=== PATIENT | female | born 1980 | race Caucasian/White ===

== ENCOUNTER 2016-11-25 06:50 | Inpatient (IN) | payer OTHER ==
[2016-11-25 07:18] VITALS: BMI 47.2
--- NOTE | 2016-11-25 08:10 | ED PDOC ---
Upper Extremity Pain/Injury Time Seen by Provider: 11/25/16 07:06 Chief Complaint (Nursing): Upper Extremity Problem/Injury Chief Complaint (Provider): Upper Extremity Problem/Injury History Per: Patient History/Exam Limitations: no limitations Onset/Duration Of Symptoms: Days (x4) Current Symptoms Are (Timing): Still Present Additional Complaint(s): Jose Fernandez is a 36 year old female, right-hand dominant, with previous medical history of hypertension, who presents to the emergency department with a complaint of sharp left arm pain radiating to left hand associated with numbness ongoing for 4 days. Denied any acute injuries or trauma. Patient stated that she is usually works with her hands at a [employer]. PMD: none provided Past Medical History Reviewed: Historical Data, Nursing Documentation, Vital Signs Vital Signs: Last Vital Signs Temp 98.3 F 11/25/16 07:15 Pulse 65 11/25/16 07:15 Resp 18 11/25/16 07:15 BP 136/73 11/25/16 07:15 Pulse Ox 98 11/25/16 07:15 - Medical History PMH: HTN (not on medication) - Surgical History Surgical History: (x 1) - Family History Family History: States: Unknown Family Hx - Social History Current smoker - smoking cessation education provided: No Ex-Smoker (has not smoked in the last 12 months): No Alcohol: Occasional Drugs: Denies - Home Medications Home Medications: Ambulatory Orders Medication Instructions Recorded No Known Home Med 11/25/16 - Allergies Allergies/Adverse Reactions: Allergies Allergy/AdvReac Type Severity Reaction Status Date / Time No Known Allergies Allergy Verified 02/12/16 10:05 Review of Systems Musculoskeletal: Positive for: Arm Pain (left), Hand Pain (left). Negative for : Other (acute injury or trauma) Neurological: Positive for: Numbness (left hand) Physical Exam - Reviewed Nursing Documentation Reviewed: Yes Vital Signs Reviewed: Yes - Physical Exam Appears: Positive for: Well (but obese), Non-toxic, No Acute Distress Head Exam: Positive for: ATRAUMATIC, NORMAL INSPECTION, NORMOCEPHALIC Cardiovascular/Chest: Positive for: Regular Rate, Rhythm. Negative for: Chest Non Tender Respiratory: Positive for: Normal Breath Sounds, Accessory Muscle Use. 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 Negative for: Deformity, Swelling (or erythema/ecchymosis) Neurologic/Psych: Positive for: Alert, Oriented - Laboratory Results Result Diagrams: 11/25/16 09:35 11/25/16 09:35 - ECG O2 Sat by Pulse Oximetry: 98 (RA) Pulse Ox Interpretation: Normal Medical Decision Making Medical Decision Making: Initial Impression: Left arm pain Initial Plan: * Toradol 30mg IM * Accucheck * Xray elbow (left) * Xray forearm (left) * Xray wrist (left) XRays unremarkable on my read labs obtained, WBC normal Mild elev CK Patient had persistent pain requiring multiple doses of narcotics and NSAID. Also given valium for muscle relaxation. MR Upper ext ordered given degree of pain r/o acute nerve entrapment Accession No. : [id number] Patient Name / ID : EDUARDO PARRAID / [id number] Exam Date : 11/25/2016 13:55:52 ( Approved ) Study Comment : Sex / Age : F / 36Y Creator : Sky Bowie MD Dictator : Sky Bowie MD News Commentator : [employer] Officer : Sky Bowie MD Approver2 : Report Date : 11/25/2016 14:55:45 My Comment : PROCEDURE: MRI left forearm and elbow without contrast HISTORY: Pain. COMPARISON: None available. TECHNIQUE: Multiecho multiplanar sequences were performed through the left elbow without the use of intravenous contrast. FINDINGS: BONES: Intact. CARTILAGE: Preserved. JOINT FLUID: Normal. MUSCLES: Normal. VESSELS: Normal. NERVES: There is mildly increased signal identified in the ulnar nerve at the level of the medial epicondyles which may indicate neuritis. Clinically correlate further. MEDIAL: Flexor pronator origin intact. Ulnar collateral ligament intact. LATERAL: Common extensor tendon intact. Radial collateral ligament intact. Lateral ulnar collateral ligament intact. TRICEPS TENDON: Intact. BICEPS TENDON: Intact. BRACHIALIS TENDON: Intact. OTHER FINDINGS: None. IMPRESSION: Limited signal increase in the ulnar nerve at the level the medial epicondyle may indicate reactive neuritis from posttraumatic or even inflammatory or infectious causes. Further clinical correlation is advised. There is no fracture or bone contusion identified throughout the former the left elbow. There is no suspicious fluid collection. No definite muscle tear identified. The tendons appear intact. As imaged. Note, with the distal most portion of the triceps and biceps tendons have not captured in this exam which focused on the forearm soft tissues which are generally unremarkable appearing. --------- Case discussed w Dr Ellington hand surgery, recommends obs admit with arm elevation and high dose anti-inflammatories. To admit hospitalist. Scribe Attestation: Documented by Noemy Villela, acting as a scribe for Ortega Andrade III, DO. Provider Scribe Attestation: All medical record entries made by the Scribe were at my direction and personally dictated by me. I have reviewed the chart and agree that the record accurately reflects my personal performance of the history, physical exam, medical decision making, and the department course for this patient. I have also personally directed, reviewed, and agree with the discharge instructions and disposition. Disposition - Clinical Impression Clinical Impression: Neuritis of left ulnar nerve - Patient ED Disposition Is Patient to be Admitted: Yes Counseled Patient/Family Regarding: Studies Performed, Diagnosis - Disposition Disposition Time: 13:00 Condition: STABLE - Pt Status Changed To: Hospital Disposition Of: Observation - POA Present On Arrival: None
[2016-11-25] MEDS ORDERED: Oxycodone/Acetaminophen 5/325 mg Tab PO ONE (09:06)
[2016-11-25 09:46] LABS: BASO % 0.4 % (0.0-2.0); EOS # 0.1 K/uL (0.0-0.7); EOS % 0.7 % (0.0-4.0); HEMATOCRIT 41.3 % (34.0-47.0); LYMPH # 3.8 K/uL (1.0-4.3); LYMPH % 43.3 % (20.0-40.0); MEAN CELL VOLUME 84.7 fl (81.0-99.0); MEAN CORPUSCULAR HEMOGLOBIN 28.7 pg (27.0-31.0); MEAN CORPUSCULAR HGB CONC 33.9 g/dL (33.0-37.0); MEAN PLATELET VOLUME 8.1 fl (7.2-11.7); MONO # 0.9 K/uL (0.0-0.8); MONO % 10.9 % (0.0-10.0); NEUT # 3.9 K/uL (1.8-7.0); NEUT % 44.7 % (50.0-75.0); NRBC % 0.1 % (0.0-0.0); WHITE BLOOD COUNT 8.7 K/uL (4.8-10.8)
[2016-11-25 09:57] LABS: BLOOD UREA NITROGEN 10 mg/dl (7-17); CALCIUM 9.5 mg/dL (8.4-10.2); CARBON DIOXIDE 24 mmol/L (22-30); CHLORIDE 105 mmol/L (98-107); GFR AFRICAN-AMERICAN > 60; GLUCOSE,RANDOM 95 mg/dL (65-105); POTASSIUM 4.2 MMOL/L (3.6-5.0); SODIUM 143 mmol/l (132-148)
[2016-11-25] MEDS ORDERED: Sodium Chloride 0.9% 1,000 ML IV STA (10:11)
--- NOTE | 2016-11-25 11:47 | RAD ---
PROCEDURE: Radiographs of the Left Forearm HISTORY: L arm pain COMPARISON: None available. TECHNIQUE: Frontal and lateral views obtained. FINDINGS: BONES: No fracture or destructive lesion. JOINT SPACES: Unremarkable. OTHER FINDINGS: None. IMPRESSION: Unremarkable radiographs of the left forearm.
--- NOTE | 2016-11-25 11:47 | RAD ---
PROCEDURE: Left Wrist Radiographs. HISTORY: L arm pain COMPARISON: None. FINDINGS: BONES: Normal. No fracture. JOINTS: Normal. No dislocation. SOFT TISSUES: Normal. OTHER FINDINGS: None. IMPRESSION: Normal left wrist radiographs.
--- NOTE | 2016-11-25 11:48 | RAD ---
PROCEDURE: Radiographs of the left elbow. HISTORY: L arm pain COMPARISON: No prior. FINDINGS: BONES: Normal. No fracture. JOINTS: Normal. No osteoarthritis. SOFT TISSUES: Normal. JOINT EFFUSION: None. OTHER FINDINGS: None IMPRESSION: Unremarkable radiographs of the left elbow.
--- NOTE | 2016-11-25 14:57 | MRI ---
PROCEDURE: MRI left forearm and elbow without contrast HISTORY: Pain. COMPARISON: None available. TECHNIQUE: Multiecho multiplanar sequences were performed through the left elbow without the use of intravenous contrast. FINDINGS: BONES: Intact. CARTILAGE: Preserved. JOINT FLUID: Normal. MUSCLES: Normal. VESSELS: Normal. NERVES: There is mildly increased signal identified in the ulnar nerve at the level of the medial epicondyles which may indicate neuritis. Clinically correlate further. MEDIAL: Flexor pronator origin intact. Ulnar collateral ligament intact. LATERAL: Common extensor tendon intact. Radial collateral ligament intact. Lateral ulnar collateral ligament intact. TRICEPS TENDON: Intact. BICEPS TENDON: Intact. BRACHIALIS TENDON: Intact. OTHER FINDINGS: None. IMPRESSION: Limited signal increase in the ulnar nerve at the level the medial epicondyle may indicate reactive neuritis from posttraumatic or even inflammatory or infectious causes. Further clinical correlation is advised. There is no fracture or bone contusion identified throughout the former the left elbow. There is no suspicious fluid collection. No definite muscle tear identified. The tendons appear intact. As imaged. Note, with the distal most portion of the triceps and biceps tendons have not captured in this exam which focused on the forearm soft tissues which are generally unremarkable appearing.
--- NOTE | 2016-11-25 16:03 | CP.PCM.HP ---
History of Present Illness - History of Present Illness History of Present Illness: 36 yo female with no significant PMH woke up 4 days ago with pain on left arm extending to the hand associated with numbness. Pain more severe on the hand limiting its movement and grasping. Denied presence of trauma. Present on Admission - Present on Admission Any Indicators Present on Admission: No History of DVT/PE: No History of Uncontrolled Diabetes: No Urinary Catheter: No Decubitus Ulcer Present: No Review of Systems - Review of Systems All systems: reviewed and no additional remarkable complaints except (aside from those mentioned above, 12 point system review were negative by me) Past Patient History - Tetanus Immunizations Tetanus Immunization: Unknown - Past Medical History & Family History Past Family History: Reviewed and not pertinent - Past Social History Smoking Status: Never Smoked Alcohol: Occasional Drugs: Denies - CARDIAC Hx Hypertension: Yes (not on medication) - PULMONARY Hx Respiratory Disorders: No - NEUROLOGICAL Hx Neurological Disorder: No - HEENT Hx HEENT Problems: No - RENAL Hx Chronic Kidney Disease: No - ENDOCRINE/METABOLIC Hx Endocrine Disorders: No - HEMATOLOGICAL/ONCOLOGICAL Hx Blood Disorders: No - INTEGUMENTARY Hx Dermatological Problems: No - MUSCULOSKELETAL/RHEUMATOLOGICAL Hx Musculoskeletal Disorders: No - GASTROINTESTINAL Hx Gastrointestinal Disorders: No - GENITOURINARY/GYNECOLOGICAL Hx Genitourinary Disorders: No - PSYCHIATRIC Hx Psychophysiologic Disorder: No Hx Substance Use: No - SURGICAL HISTORY Hx Section: Yes Hx Orthopedic Surgery: Yes (right elbow ) - ANESTHESIA Hx Anesthesia: Yes Hx Anesthesia Reactions: No Meds Allergies/Adverse Reactions: Allergies Allergy/AdvReac Type Severity Reaction Status Date / Time No Known Allergies Allergy Verified 02/12/16 10:05 Physical Exam - Constitutional Appears: No Acute Distress - Head Exam Head Exam: ATRAUMATIC - Eye Exam Eye Exam: PERRL - ENT Exam ENT Exam: Mucous Membranes Moist - Neck Exam Neck exam: Negative for: Meningismus - Respiratory Exam Respiratory Exam: absent: Rhonchi, Wheezes, Respiratory Distress - Cardiovascular Exam Cardiovascular Exam: REGULAR RHYTHM, +S1, +S2 - GI/Abdominal Exam GI & Abdominal Exam: Soft. absent: Tenderness - Rectal Exam Rectal Exam: Deferred - Extremities Exam Extremities exam: Positive for: tenderness (on right medial epicondyle and wrist area) - Neurological Exam Neurological exam: Alert, Oriented x3 - Psychiatric Exam Psychiatric exam: Normal Affect - Skin Skin Exam: Dry, Intact Results - Vital Signs Recent Vital Signs: Last Vital Signs Temp 98.3 F 11/25/16 07:15 Pulse 65 11/25/16 07:15 Resp 18 11/25/16 07:15 BP 136/73 11/25/16 07:15 Pulse Ox 98 11/25/16 15:21 - Labs Result Diagrams: 11/25/16 09:35 11/25/16 09:35 Labs: Laboratory Results - last 24 hr 11/25/16 11/25/16 09:35 09:35 WBC 8.7 D RBC 4.88 Hgb 14.0 Hct 41.3 MCV 84.7 MCH 28.7 MCHC 33.9 RDW 13.0 Plt Count 357 MPV 8.1 Neut % (Auto) 44.7 L Lymph % (Auto) 43.3 H [place] % (Auto) 10.9 H Eos % (Auto) 0.7 Baso % (Auto) 0.4 Neut # 3.9 Lymph # 3.8 [place] # 0.9 H Eos # 0.1 Baso # 0.0 Sodium 143 Potassium 4.2 Chloride 105 Carbon Dioxide 24 Anion Gap 18 BUN 10 Creatinine 0.6 L Est GFR ( Amer) > 60 Est GFR (Non-Af Amer) > 60 Random Glucose 95 Calcium 9.5 Total Creatine Kinase 189 H Assessment & Plan (1) Neuritis of left ulnar nerve Status: Acute Comment: place on observation in med/surg. hand surgeon consult with dr Henning (called by ER). Motrin 600mg PO q 6hrs prn. keep left arm elevated and prevent extended period of elbow flexion
[2016-11-25] MEDS ORDERED: Influenza Vaccine 18yr & older 0.5 ML/45 MCG SYR IM ONE (17:17)
[2016-11-26 07:51] LABS: BLOOD UREA NITROGEN 11 mg/dl (7-17); CALCIUM 9.1 mg/dL (8.4-10.2); CARBON DIOXIDE 20 mmol/L (22-30); CHLORIDE 108 mmol/L (98-107); GFR AFRICAN-AMERICAN > 60; GLUCOSE,RANDOM 106 mg/dL (65-105); POTASSIUM 4.2 MMOL/L (3.6-5.0); SODIUM 140 mmol/l (132-148)
[2016-11-26] MEDS: Enoxaparin 40 mg Syringe SC SCH (09:00)
[2016-11-26] MEDS: Pantoprazole 40 mg EC Tab PO SCH (09:00)
[2016-11-26 09:11] LABS: BASO # 0.1 K/uL (0.0-0.2); BASO % 0.5 % (0.0-2.0); HEMATOCRIT 41.4 % (34.0-47.0); LYMPH # 2.2 K/uL (1.0-4.3); LYMPH % 17.2 % (20.0-40.0); MEAN CELL VOLUME 86.9 fl (81.0-99.0); MEAN CORPUSCULAR HEMOGLOBIN 28.5 pg (27.0-31.0); MEAN CORPUSCULAR HGB CONC 32.8 g/dL (33.0-37.0); MONO # 0.9 K/uL (0.0-0.8); MONO % 7.1 % (0.0-10.0); NEUT # 9.8 K/uL (1.8-7.0); NEUT % 75.2 % (50.0-75.0); NRBC % 0.1 % (0.0-0.0); RED CELL DISTRIBUTION WIDTH 13.4 % (11.5-14.5)
--- NOTE | 2016-11-26 10:57 | CP.PCM.PN ---
Subjective - Date & Time of Evaluation Date of Evaluation: 11/26/16 Time of Evaluation: 11:00 - Subjective Subjective: Pt seen and examined. Pain temporarily relieved with IV Toradol which lasted less than 4 hrs. Refused to take Ibuprofen since she claimed it didn't work for her at home. Objective - Vital Signs/Intake and Output Vital Signs (last 24 hours): Temp Pulse Resp BP Pulse Ox 98 F 72 18 113/77 97 11/26/16 07:25 11/26/16 07:25 11/26/16 07:25 11/26/16 07:25 11/26/16 07:25 - Medications Medications: Current Medications Acetaminophen (Tylenol 325mg Tab) 650 mg PO Q4 PRN PRN Reason: Pain, Mild (1-3) Enoxaparin Sodium (Lovenox) 40 mg SC DAILY [facility] PRN Reason: Protocol Last Admin: 11/26/16 09:00 Dose: 40 mg Ketorolac Tromethamine (Toradol) 30 mg IVP Q6 PRN PRN Reason: Pain, severe (8-10) Last Admin: 11/26/16 07:25 Dose: 30 mg Pantoprazole Sodium (Protonix Ec Tab) 40 mg PO DAILY [facility] Last Admin: 11/26/16 09:00 Dose: 40 mg Tramadol HCl (Ultram) 100 mg PO Q4 PRN PRN Reason: Pain, moderate (4-7) - Labs Labs: 11/26/16 06:45 11/26/16 06:45 - Constitutional Appears: No Acute Distress - Head Exam Head Exam: ATRAUMATIC - Eye Exam Eye Exam: absent: Scleral icterus - ENT Exam ENT Exam: Mucous Membranes Moist - Neck Exam Neck Exam: absent: Meningismus - Respiratory Exam Respiratory Exam: absent: Rhonchi, Wheezes, Respiratory Distress - Cardiovascular Exam Cardiovascular Exam: REGULAR RHYTHM, +S1, +S2 - GI/Abdominal Exam GI & Abdominal Exam: Soft. absent: Tenderness - Rectal Exam Rectal Exam: Deferred - Extremities Exam Extremities Exam: Tenderness (slight tenderness on left medial epicondyle? ( patient did not flinch or jump when touched)) - Neurological Exam Neurological Exam: Alert, Oriented x3 - Psychiatric Exam Psychiatric exam: Normal Affect - Skin Skin Exam: Dry, Intact Assessment and Plan (1) Neuritis of left ulnar nerve Status: Acute - Assessment and Plan (Free Text) Assessment: patient still complaining of pain only relieved with IV Toradol since she refused 600mg of Ibuprofen switched to full admission because of continued severe pain on left arm physiatry and pain management consult with Dr Peterson CARDOZO Ibuprofen Ultram 100mg PO q 4hrs prn for moderate pain continue IV Toradol q 6hrs prn for severe pain
[2016-11-27 07:28] VITALS: O2SAT 97
--- NOTE | 2016-11-27 08:38 | CP.PCM.PN ---
Subjective - Date & Time of Evaluation Date of Evaluation: 11/27/16 Time of Evaluation: 08:42 - Subjective Subjective: Pt seen and examined at bedside. Pain is relieved with pain medication but returns after 1-2 hours. Pt states she is having new numbness and burning in her 1st-4th fingers. Pt states the pain is now in those fingers as well as the inside of her elbow and her armpit. Pt states it is difficult to use her left hand or raise her left arm. Pt denies F/C/N/V/SOB. Objective - Vital Signs/Intake and Output Vital Signs (last 24 hours): Temp Pulse Resp BP Pulse Ox 98.4 F 67 18 106/71 97 11/27/16 07:28 11/27/16 07:28 11/27/16 07:28 11/27/16 07:28 11/27/16 07:28 - Medications Medications: Current Medications Acetaminophen (Tylenol 325mg Tab) 650 mg PO Q4 PRN PRN Reason: Pain, Mild (1-3) Enoxaparin Sodium (Lovenox) 40 mg SC DAILY [facility] PRN Reason: Protocol Last Admin: 11/26/16 09:00 Dose: 40 mg Gabapentin (Neurontin) 300 mg PO TID [facility] Ketorolac Tromethamine (Toradol) 30 mg IVP Q6 PRN PRN Reason: Pain, severe (8-10) Last Admin: 11/27/16 00:37 Dose: 30 mg Pantoprazole Sodium (Protonix Ec Tab) 40 mg PO DAILY [facility] Last Admin: 11/26/16 09:00 Dose: 40 mg Tramadol HCl (Ultram) 100 mg PO Q4 PRN PRN Reason: Pain, moderate (4-7) - Labs Labs: 11/26/16 06:45 11/26/16 06:45 - Constitutional Appears: Well, Non-toxic, No Acute Distress - Extremities Exam Additional comments: Left upper extremity focused exam: Tenderness upon passive flexion and extension of digits 1-4. Mild tenderness to palpation of medial epicondyle. Tenderness elicited upon passive abduction of arm at shoulder. ROM at shoulder, arm, wrist and hand joints is WNL upon passive assessment. - Neurological Exam Neurological Exam: Alert, Awake, Oriented x3 - Psychiatric Exam Psychiatric exam: Normal Affect, Normal Mood Assessment and Plan - Assessment and Plan (Free Text) Assessment: 36 y/o female with left ulnar neuritis Plan: Pt seen and examined at bedside Discussed plan in detail with Dr. Sebastian Pt still complaining of pain and stating it is now affecting her fingers Physiatry and pain management consult with Dr Winkler pending Continue Neurontin 300mg PO TID for neuropathic pain Continue Ultram 100mg PO q 4hrs prn for moderate pain continue IV Toradol q 6hrs prn for severe pain
[2016-11-27] MEDS: Enoxaparin 40 mg Syringe SC SCH (09:00)
[2016-11-27] MEDS: Pantoprazole 40 mg EC Tab PO SCH (09:00)
--- NOTE | 2016-11-27 15:44 | CP.PCM.DIS ---
Provider - Provider Date of Admission: 11/26/16 10:47 Attending physician: Gus Pimentel MD Time Spent in preparation of Discharge (in minutes): 25 Diagnosis - Discharge Diagnosis (1) Neuritis of left ulnar nerve Status: Acute Comment: continue to improve. discharged with [facility] Course - Lab Results Lab Results: Most Recent Lab Values WBC 13.0 K/uL (4.8-10.8) H 11/26/16 06:45 RBC 4.77 Mil/uL (3.80-5.20) 11/26/16 06:45 Hgb 13.6 g/dL (12.0-16.0) 11/26/16 06:45 Hct 41.4 % (34.0-47.0) 11/26/16 06:45 MCV 86.9 fl (81.0-99.0) D 11/26/16 06:45 MCH 28.5 pg (27.0-31.0) 11/26/16 06:45 MCHC 32.8 g/dL (33.0-37.0) L 11/26/16 06:45 RDW 13.4 % (11.5-14.5) 11/26/16 06:45 Plt Count 266 K/uL (130-400) 11/26/16 06:45 MPV 9.0 fl (7.2-11.7) 11/26/16 06:45 Neut % (Auto) 75.2 % (50.0-75.0) H 11/26/16 06:45 Lymph % (Auto) 17.2 % (20.0-40.0) L 11/26/16 06:45 [place] % (Auto) 7.1 % (0.0-10.0) 11/26/16 06:45 Eos % (Auto) 0.0 % (0.0-4.0) 11/26/16 06:45 Baso % (Auto) 0.5 % (0.0-2.0) 11/26/16 06:45 Neut # 9.8 K/uL (1.8-7.0) H 11/26/16 06:45 Lymph # 2.2 K/uL (1.0-4.3) 11/26/16 06:45 [place] # 0.9 K/uL (0.0-0.8) H 11/26/16 06:45 Eos # 0.0 K/uL (0.0-0.7) 11/26/16 06:45 Baso # 0.1 K/uL (0.0-0.2) 11/26/16 06:45 ESR 10 mm/hr (0-20) 11/25/16 19:00 Sodium 140 mmol/l (132-148) 11/26/16 06:45 Potassium 4.2 MMOL/L (3.6-5.0) 11/26/16 06:45 Chloride 108 mmol/L (98-107) H 11/26/16 06:45 Carbon Dioxide 20 mmol/L (22-30) L 11/26/16 06:45 Anion Gap 16 (10-20) 11/26/16 06:45 BUN 11 mg/dl (7-17) 11/26/16 06:45 Creatinine 0.5 mg/dL (0.7-1.2) L 11/26/16 06:45 Est GFR ( Amer) > 60 11/26/16 06:45 Est GFR (Non-Af Amer) > 60 11/26/16 06:45 POC Glucose (mg/dL) 85 mg/dL (65-110) 11/25/16 07:54 Random Glucose 106 mg/dL (65-105) H 11/26/16 06:45 Calcium 9.1 mg/dL (8.4-10.2) 11/26/16 06:45 Total Creatine Kinase 189 U/L (30-135) H 11/25/16 09:35 - Hospital Course Hospital Course: 36 yo female with no significant PMH woke up 4 days ago with pain on left arm extending to the hand associated with numbness. Pain was more severe on the hand limiting movement and use of hand. MRI reading was suspicious of left ulnar neuritis at the level of medial epicondyle. Patient was managed with anti- inflammatory and analgesic and had some improvement. Patient was discharged in stable condition and advised to continue taking Neurontin and Ultram. Discharge Exam - Head Exam Head Exam: ATRAUMATIC - Eye Exam Eye Exam: PERRL. absent: Scleral icterus - ENT Exam ENT Exam: Mucous Membranes Moist - Respiratory Exam Respiratory Exam: absent: Rales, Rhonchi, Wheezes, Respiratory Distress - Cardiovascular Exam Cardiovascular Exam: REGULAR RHYTHM, +S1, +S2 - GI/Abdominal Exam GI & Abdominal Exam: Soft. absent: Tenderness - Rectal Exam Rectal Exam: Deferred - Neurological Exam Neurological exam: Alert, Oriented x3 - Psychiatric Exam Psychiatric exam: Normal Affect - Skin Skin Exam: Dry, Intact Discharge Plan - Discharge Medications Prescriptions: Gabapentin [Neurontin] 300 mg PO TID #21 cap traMADol [Ultram] 100 mg PO Q4 PRN #20 tab PRN Reason: Pain, Moderate (4-7) - Follow Up Plan Condition: STABLE Disposition: HOME/ ROUTINE Additional Instructions: continue Neurontin 300mg PO 3x daily and Ultram 100mg PO q 4hrs as needed for pain
[2016-11-27 16:47] VITALS: BP 111/79; PULSE 63; RESP 20; TEMP 98.8
== END 2016-11-27 17:40 | disposition home or self-care (01) | DRG 19 ==
LOC: H.ER 06:50 → H.ERHOLD 15:18 → H.MEDSURG1 16:34 → OBSVTOIN 11-26 10:47
DX: G56.22 Lesion of ulnar nerve, left upper limb (principal); I10 Essential (primary) hypertension